=== PATIENT | female | born 1995 | race Caucasian/White ===

== ENCOUNTER 2021-06-05 19:17 | Emergency (ER) | payer OTHER ==
[~2021-06-05] VITALS: Ht 177.8 cm; Wt 140.6 kg
--- NOTE | 2021-06-05 20:38 | ED Cough/URI ---
General Chief Complaint: Cough/Cold/Flu Symptoms Stated Complaint: COUGH/CONGESTION/FEVER/SOB Nursing Triage Note: PT AMBULATE TO ROOM 07 WITH C/O COUGH AND SCRATCHY THROAT X4 DAYS. PT STATES SHE DID NOT SEE HER PCP BECAUSE IT WAS GOING TO BE A X1 WEEK WAIT. (ANDREEA HUDSON) History of Present Illness Date Seen by Provider: Jun 05, 2021 Time Seen by Provider: 19:55 Initial Comments 25-year-old female presents for cough and congestion that have been present for the last 4 days. She has not been tested for Covid or influenza. She has not received vaccinations for either as well. She does report having Covid in September 2020 and developing pneumonia secondarily. She denies any shortness of breath. She has sinus congestion and sinus pressure. She tried NyQuil one time and has had ibuprofen intermittently. She had an inhaler from the spring that she has been using but hadn't noticed improvement. Timing/Duration: intermittent Severity/Quality: mild, productive cough Prior Episodes/Possible Cause: no prior episodes Associated Symptoms: cough, facial pain, nasal congestion, nasal drainage, sore throat (ANDREEA HUDSON) Allergies and Home Medications Allergies Coded Allergies: No Known Drug Allergies (Unverified , 06/05/21) Patient Home Medication List Home Medication List Reviewed: Yes (ANDREEA HUDSON) Review of Systems Review of Systems Constitutional: no symptoms reported, see HPI EENTM: see HPI, nose congestion, throat pain Respiratory: see HPI, cough, phlegm Cardiovascular: no symptoms reported, see HPI Gastrointestinal: no symptoms reported, see HPI : No (per patient, in same sex marriage ) (ANDREEA HUDSON) All Other Systems Reviewed Negative Unless Noted: Yes (ANDREEA HUDSON) Past Xqomjuw-Ltgjmd-Wavsyx Hx Patient Social History Tobacco Use?: No Smoking Status: Never a Smoker Smokeless Tobacco Frequency: Current Everyday User, Never a User Use of E-Cig and/or Vaping dev: Yes E-Cig or Vaping type used: Nicotine Use of E-Cig and/or Vaping Lionel: Current Everyday User Substance use?: No Alcohol Use?: Yes Alcohol Frequency: Daily Pt feels they are or have been: No (ANDREEA HUDSON) Family Medical History Reviewed Nursing Family Hx (ANDREEA HUDSON) Physical Exam Vital Signs - First Documented 06/05/21 19:53 Temp 36.8 Pulse 94 Resp 17 B/P (MAP) 129/69 (89) O2 Delivery Room Air (YARI LUO DO) Capillary Refill : Less Than 3 Seconds (ANDREEA HUDSON) Height: '" Weight: lbs. oz. kg; 44.00 BMI Method: General Appearance: WD/WN, no apparent distress Eyes: Bilateral Eye Normal Inspection, Bilateral Eye PERRL, Bilateral Eye EOMI HEENT: PERRL/EOMI, normal ENT inspection, TMs normal, pharynx normal; No pharyngeal erythema, No tonsillar exudate; other (Frontal and maxillary sinus tenderness.) Neck: non-tender, full range of motion, supple, normal inspection Respiratory: chest non-tender, lungs clear, normal breath sounds Cardiovascular: normal peripheral pulses, regular rate, rhythm Gastrointestinal: normal bowel sounds, non tender, soft Neurologic/Psychiatric: no motor/sensory deficits, alert, normal mood/affect, oriented x 3 Skin: normal color, warm/dry (ANDREEA HUDSON) Progress/Results/Core Measures Suspected Sepsis SIRS Temperature: Pulse: 94 Respiratory Rate: 17 Blood Pressure 129 /69 Mean: 89 (ANDREEA HUDSON) Results/Orders Lab Results Laboratory Tests Test 06/05/21 20:04 Range/Units Influenza Type A Antigen NEGATIVE NEGATIVE Influenza Type B Antigen NEGATIVE NEGATIVE SARS-CoV-2 RNA (RT-PCR) Negative Negative Group A Streptococcus Screen NEGATIVE NEGATIVE (YARI LUO DO) My Orders Orders - YARI LUO DO Covid 19 Inhouse Test (06/05/21 20:00) Influenza A & B Antigens (06/05/21 20:00) Isolation Central Supply Req (06/05/21 20:00) Rapid Strep A Screen (06/05/21 20:09) Coronavirus Sars-Cov-2 So 2019 (06/05/21 20:04) (YARI LUO DO) Vital Signs/I&O 06/05/21 06/05/21 06/05/21 19:53 19:53 22:00 Temp 36.8 36.8 Pulse 94 94 Resp 17 17 B/P (MAP) 129/69 (89) 129/69 O2 Delivery Room Air Room Air Room Air (VALERIO,YARI K DO) Vital Signs/I&O Capillary Refill : Less Than 3 Seconds (ANDREEA HUDSON) Blood Pressure Mean: 89 Diagnostic Imaging Diagonstic Imaging: Xray Plain Films/CT/US/NM/MRI: chest Comments NAME: SIA [facility] REC#: [id number] PT STATUS: DEP ER : 1995 PHYSICIAN: ANDREEA HUDSON ADMIT DATE: 06/05/21/ER Draft Date of Exam:06/05/21 CHEST 1 VIEW, AP/PA ONLY CLINICAL INDICATION: Patient cough. EXAM: Portable chest x-ray upright view. COMPARISON: None. FINDINGS: Lungs/pleura: There is subtle airspace infiltrate in the right lung base. There is no pneumothorax. There is no pleural effusion. Mediastinum: Unremarkable. Pulmonary vasculature: Unremarkable. Heart: Unremarkable. Bones/extrathoracic soft tissue: Unremarkable. IMPRESSION: There is a subtle airspace infiltrate in the right lung base concerning for pneumonia. Dictated on workstation # [id number] Dict: 06/05/212157 Trans: 06/05/212207 [facility] [id number] Interpreted by: SHIRLENE HOOPER MD Electronically signed by: Reviewed: Reviewed by Me (No adventicious lung sounds in Right lung base. ) (ANDREEA HUDSON) Departure Impression Primary Impression: Sinus congestion Disposition: 01 HOME, SELF-CARE Condition: Improved Departure-Patient Inst. Decision time for Depature: 21:50 (ANDREEA HUDSON) Referrals: BUCK JACOBS DO (PCP/Family) Primary Care Physician Patient Instructions: Viral Upper Respiratory Infection, Adult (DC) Add. Discharge Instructions: Use Afrin for 3 to 4 days and then discontinue. Use a sinus rinse every 2-3 hours as needed for congestion. Alternate between DayQuil and NyQuil for symptoms. Alternate between Tylenol 650 mg and ibuprofen 600 mg every 4 hours for fever or discomfort. Follow-up with your primary care provider if symptoms are not improving or worsen. Return to the emergency department for new, urgent healthcare needs. All discharge instructions reviewed with patient and/or family. Voiced understanding. ATTENDING PHYSICIAN NOTE: I WAS PHYSICALLY PRESENT ER PHYSICIAN WHEN THIS PATIENT WAS IN ER, BUT I WAS NOT INVOLVED IN ANY DECISION MAKING OR ANY CARE OF THIS PATIENT. (YARI LUO DO) ANDREEA HUDSON Jun 05, 2021 20:38 YARI LUO DO Jun 06, 2021 03:43
[2021-06-05 22:00] VITALS: BP 129/69
--- NOTE | 2021-06-05 22:09 | Diagnostic Imaging Report ---
CLINICAL INDICATION: Patient cough. EXAM: Portable chest x-ray upright view. COMPARISON: None. FINDINGS: Lungs/pleura: There is subtle airspace infiltrate in the right lung base. There is no pneumothorax. There is no pleural effusion. Mediastinum: Unremarkable. Pulmonary vasculature: Unremarkable. Heart: Unremarkable. Bones/extrathoracic soft tissue: Unremarkable. IMPRESSION: There is a subtle airspace infiltrate in the right lung base concerning for pneumonia. Dictated by: Dictated on workstation # [id number]
== END 2021-06-05 22:04 | disposition home or self-care (01) ==
LOC: ER 19:20
DX: R09.81 Nasal congestion (principal); F17.290 Nicotine dependence, other tobacco product, uncomplicated; Z20.822 Contact with and (suspected) exposure to COVID-19
CPT/HCPCS: 71045; 87430; 87635; 87636; 87804